=== PATIENT | female | born 1980 | race Caucasian/White ===

== ENCOUNTER 2019-05-30 11:24 | Emergency (ER) | payer MEDICAID ==
[~2019-05-30] VITALS: Ht 154.9 cm; Wt 78.9 kg
[2019-05-30 11:38] VITALS: BP 114/64; Ht 154.9 cm; Wt 78.9 kg
== END 2019-05-30 13:28 | disposition home or self-care (01) ==
LOC: ED 11:24
DX: S92.302A Fracture of unspecified metatarsal bone(s), left foot, initial encounter for closed fracture (principal); E11.9 Type 2 diabetes mellitus without complications; X58.XXXA Exposure to other specified factors, initial encounter; Y93.89 Activity, other specified; Y92.89 Other specified places as the place of occurrence of the external cause; Y99.8 Other external cause status